=== PATIENT | female | born 1980 | race Caucasian/White ===

== ENCOUNTER 2021-05-08 20:02 | Emergency (ER) | payer OTHER ==
[~2021-05-08] VITALS: Ht 170.2 cm; Wt 100.6 kg
--- NOTE | 2021-05-08 21:08 | PHYS DOC ---
Past History Additional Past Medical Histor: POS, osteoarthritis Past Surgical History: Hysterectomy, Other Additional Past Surgical Histo: left wrist fusion, bilateral knee surgery Adult General Chief Complaint Chief Complaint: POST-OP PROBLEM HPI HPI Patient is a 41-year-old female who presents with left wrist pain. States she had broken her wrist and has hardware in there and is due to follow-up with her orthopedic surgeon tomorrow but came in because she felt a knot on her forearm and felt her splint was a little tight. States she called the nurses line and was told it was probably a blood clot. States her pain in her arm is about 6 out of 10, dull and achy in nature but does have pain medicine at home and does not want any here. Denies any fevers, chest pain, shortness of breath, abdominal pain, nausea, vomiting. Review of Systems Review of Systems Review of systems otherwise unremarkable except noted in HPI Allergies Allergies Allergies Coded Allergies Type Severity Reaction Last Updated Verified No Known Drug Allergies 05/08/21 No Physical Exam Physical Exam Constitutional: Well developed, well nourished, no acute distress, non-toxic appearance. [] Cardiovascular:Heart rate regular rhythm, no murmur [] Lungs & Thorax: Bilateral breath sounds clear to auscultation [] Skin: Warm, dry, no erythema, no rash. [] Extremities: Mild generalized tenderness around the wrist with some bruising and mild swelling. Neurovascular exam intact. Neurologic: Alert and oriented X 3, no focal deficits noted. [] Psychologic: Affect normal, judgement normal, mood normal. [] Current Patient Data Vital Signs Vital Signs Date Time Temp Pulse Resp B/P (MAP) Pulse Ox O2 Delivery O2 Flow Rate FiO2 05/08/21 20:31 98.3 101 18 154/94 (114) 99 Room Air EKG EKG [] Radiology/Procedures Radiology/Procedures [] Heart Score C/O Chest Pain: No Risk Factors: Risk Factors: DM, Current or recent (<one month) smoker, HTN, HLP, family history of CAD, obesity. Risk Scores: Risk Factors: DM, Current or recent (<one month) smoker, HTN, HLP, family hi story of CAD, obesity. Course & Med Decision Making Course & Med Decision Making Patient is a 41-year-old female who presents with wrist pain Vital signs initially notable for tachycardia and hypertension which resolved in the ED. Patient denies need for pain medication. Imaging with no new acute osseous abnormalities. Loosened patient splint and rewrapped. Advised to keep appointment in the morning with orthopedic surgeon. Gave return precautions to the ED. Family grateful, verbalized understanding and agreed with plan of discharge. [] Dragon Disclaimer Dragon Disclaimer This electronic medical record was generated, in whole or in part, using a voice recognition dictation system. Departure Departure: Impression: Primary Impression: Broken wrist Referrals: PCP,UNKNOWN (PCP) KARINA HAMILTON Patient Instructions: RICE - Routine Care for Injuries Additional Instructions: Thank you for coming into the emergency department tonight and allowing us to take care of you. Please read the attached information carefully to go over some of the things we discussed for symptom management as well. Please follow- up in the morning with your primary care physician and/or keep your appointment with the orthopedic surgeon. Please take all your pain medications as prescribed. You can continue to use Tylenol and ibuprofen and ice as needed. Please come back to the ED with new or concerning symptoms as we discussed. RAFFI KEVIN MD May 08, 2021 21:08
--- NOTE | 2021-05-08 21:18 | RAD ---
Left wrist x-rays 3 views HISTORY: Left wrist pain. FINDINGS: External casting material decreases sensitivity to characterize subtle pathology. There darcie ears be absence of the scaphoid, lunate and triquetrum presumed surgically, the pisiform and the dist al carpal row remains although a portion of the trapezoid may be absent. There is a dorsal fixation p late and screws bridging across the distal radius, carpal bones and base of the third metacarpal. Ang led irregularity of the distal radius at the wrist on the lateral view could be postsurgical versus a posttraumatic defect. Ulna intact. IMPRESSION: Postoperative changes of surgical resection of most of the proximal carpal row, and arthr odesis with dorsal fixation plate and screws across the distal radius, carpus and third metacarpal. I rregularity of the distal radius at the radiocarpal joint could be postsurgical or due to a fracture defect. Left forearm AP lateral x-rays 2 views HISTORY: Left forearm pain. FINDINGS: Dorsal fixation plate and screws across the distal radius, carpus and third metacarpal. Ang led irregularity of the distal radius at the wrist. The radial shaft and proximal radius and radial h ead of the elbow is intact. The ulna is intact. IMPRESSION: No acute osseous injury of the forearm. Irregularity of the radius at the wrist as descri bed in the wrist x-ray report. Dorsal forearm soft tissue edema and mild swelling. Electronically signed by: Slava Wade MD (05/08/2021 9:15 PM) [facility]
[2021-05-08 21:20] VITALS: BP 150/88
== END 2021-05-08 21:25 | disposition home or self-care (01) ==
LOC: EDSEX 20:02 → ER 20:02
DX: S62.102A Fracture of unspecified carpal bone, left wrist, initial encounter for closed fracture (principal); M19.90 Unspecified osteoarthritis, unspecified site; X58.XXXA Exposure to other specified factors, initial encounter; Y93.89 Activity, other specified; Y92.89 Other specified places as the place of occurrence of the external cause; Y99.8 Other external cause status
CPT/HCPCS: 73090; 73110; 99284